=== PATIENT | female | born 1950 | race Caucasian/White ===

== ENCOUNTER 2019-04-01 17:54 | Emergency (ER) | payer SELFPAY ==
[~2019-04-01] VITALS: Ht 160 cm; Wt 65.3 kg
[2019-04-01 18:01] VITALS: BP 138/73
--- NOTE | 2019-04-01 18:07 | NUR ---
WRAPPED PT FINGER IN STERILE GAUZE AND SECURED WITH COBAN. PT AMBULATED TO [facility]
--- NOTE | 2019-04-01 19:05 | NUR ---
Patient ambulated to bed 9
--- NOTE | 2019-04-01 19:30 | NUR ---
69/F [employer], C/O 2CM MODERATELY DEEP LACERATION ON L 2ND FINGER, 6 HRS AGO WHILE OPENING A CAR DOOR. L INDEX FINGER WITH CAP REFILL<3S, +SENSATION, TENDER TO TOUCH, PT UNABLE TO FLEX FINGER DOWN. BLEEDING CONTROLLED. HX HTN
[2019-04-01] MEDS ORDERED: LIDOCAINE MPF 1% - 5 mL VIAL 10 ML ONE (20:52)
[2019-04-01] MEDS: LIDOCAINE 1% 500 MG/50 ML VIAL INJ SCH (21:00)
--- NOTE | 2019-04-01 21:00 | NUR ---
Dr Miller at bedside for suture repair on L 2nd digit
[2019-04-01 21:17] VITALS: BP 138/73
--- NOTE | 2019-04-01 21:17 | NUR ---
Patient discharged with v/s stable by Dr Miller. Written and verbal after care instructions given and explained by Dr Miller. Patient alert, oriented and verbalized understanding of instructions. Ambulatory with steady gait. All questions addressed prior to discharge by Dr Miller. ID band removed by Dr Miller. Patient advised to follow up with PMD by Dr Miller. Rx of Naprosyn given by Dr Miller. Patient educated on indication of medication including possible reaction and side effects by Dr Miller. Opportunity to ask questions provided and answered by Dr Miller.
== END 2019-04-01 21:17 | disposition home or self-care (01) ==
LOC: MED 17:54
DX: S62.632A Displaced fracture of distal phalanx of right middle finger, initial encounter for closed fracture (principal); S61.211A Laceration without foreign body of left index finger without damage to nail, initial encounter; I10 Essential (primary) hypertension; W22.8XXA Striking against or struck by other objects, initial encounter; Y93.89 Activity, other specified; Y92.810 Car as the place of occurrence of the external cause; Y99.8 Other external cause status
CPT/HCPCS: 12002; 73140; 99283; J2001; Q0092